=== PATIENT | female | born 1970 | race Caucasian/White ===

== ENCOUNTER 2016-09-21 11:07 | Emergency (ER) | payer BC ==
--- NOTE | ~2016-09-21 | CT4 ---
[facility] A Service of [facility] RADIOLOGY TEXT RESULTS PATIENT: MIKE PATTERSON LOCATION: [facility] : 66 UNIT #: [id number] AGE: [address]: Porfirio Yadav MD SEX: F ORDER DR: [id number] [facility] [address] [place], [place] [address] [id number] MR#: [id number] #: [id number] NAME: MIKE PATTERSON. : 1970 SEX: F STUDY DATE/TIME: 09/21/2016 12:44 UNIT: [facility] ROOM: STUDY DESCRIPTION: CT Abd and Pelv Wo Cont Attending Physician: Porfirio Yadav M.D. Ordering Physician: Porfirio Yadav M.D. Primary Care Physician: Primary Care Physician No MEDICAL IMAGING REPORT This report is preliminary unless electronic signature is present EXAM CT abdomen and pelvis, 09/21/2016 HISTORY Abdomen pain, blood in stool. Generalized weakness for 5 days. History of irritable bowel syndrome. History of right breast cancer. Prior hysterectomy and cholecystectomy. TECHNIQUE This CT exam was performed with one or more of the following radiation dose reduction techniques: automatic exposure control, adjustment of mA and/or kV according to patient size, and iterative reconstruction. FINDINGS CT abdomen and pelvis performed without oral or intravascular contrast. Study limited in the absence of both oral and intravascular contrast. Comparison 04/28/2016. Prior bilateral breast reconstruction/augmentation. The lung bases are clear. Inferior heart and pericardium remarkable. The liver is normal in appearance. No intrahepatic biliary ductal dilatation. There is stable extrahepatic ductal prominence measuring approximately 11.0 mm in diameter with no obstructing process seen and likely physiologic in nature. No pancreatic ductal dilatation. The pancreas is unremarkable. There are calcified splenic granulomata. The adrenal glands are unremarkable. The kidneys show no acute left renal abnormality. No left hydronephrosis or hydroureter. Calcifications in the left pelvis felt to be outside the course of the left ureter. There are tiny right renal calculi, the largest in the mid-right kidney measuring on the order of 2.0-3.0 mm in diameter. No hydronephrosis or hydroureter. No secondary signs of recent stone passage. No bladder calculi. Urinary bladder unremarkable. No perinephric inflammatory change. No indication of cystic or solid mass lesion on noncontrast-enhanced study. The urinary bladder is unremarkable. [facility]. [facility] A Service of [facility] RADIOLOGY TEXT RESULTS PATIENT: MIKE PATTERSON [id number] 66 UNIT #: [id number] AGE: [address]: Porfirio Yadav MD SEX: F ORDER DR: CT PELVIS: No inguinal adenopathy. Status post hysterectomy. No suspicious adnexal structures. No pelvic or retroperitoneal adenopathy. Distal esophagus, stomach, small bowel within normal limits. Air and fluid seen throughout small bowel. Mild air and fluid distension of proximal small bowel with no wall or fold thickening. No pathologic dilatation and no adjacent inflammatory change. Appearance favored to be physiologic in nature. The appendix is not clearly identified but no pericecal or right lower quadrant inflammatory change is seen. The colon shows no acute-appearing abnormality. Cause for the patient's reported blood in stool unclear on basis of this examination. No colonic inflammatory change or focal mass lesion suggested. Unopacified vascular structures show scattered atherosclerotic arterial calcifications. Bony structures show no acute abnormality. IMPRESSION 1. Study somewhat limited in the absence of both oral and intravascular contrast. No clearly acute abnormality seen in the abdomen or pelvis. 2. Status post cholecystectomy and hysterectomy. 3. Stable mild distension extrahepatic common bile duct. No change from March 2016 and favored to be physiologic in nature and related to prior cholecystectomy. 4. Tiny nonobstructing right renal calculi largest measuring 2.0-3.0 mm. No secondary signs of recent stone passage. Kidneys, ureters, urinary bladder otherwise unremarkable. 5. Cause for reported blood in stool unclear. No acute appearing colonic abnormality. No inflammatory change or suggestion of mass lesion. 6. Appendix not clearly identified but no pericecal or lower pelvic inflammatory change is seen. 7. Stable appearance of prior bilateral mammoplasty. 8. See remainder of incidental findings in body of report above. Dictated by... Arpan Mendenhall M.D. THIS IS AN ELECTRONICALLY VERIFIED REPORT Arpan Mendenhall M.D. at 09/22/2016 7:16 PM LENNY/carlos manuel TD: 09/21/2016 14:35 JOB #: [id number] MEDICAL IMAGING REPORT Page 1 of 1 COPY
[~2016-09-21 11:07] MED LIST: ADVIL200 M2 PO; BENTYL10 M1 PO; CIPRO PO; CLIMARA1 PATCH.WK; FLAGYL PO; LOMOTIL TABLET1 TAB PO; LOMOTIL WHITE2.5 M1 PO; LORTAB 7.5-3251 EACH PO; MULTI VITAMIN1 EACH PO; OXYTROL1 PATCH.BW; PHENERGAN PO; PHENERGAN PR; TYLOX 5/500 CAP1 CAP PO; ZELNORM
[2016-09-21 12:24] LABS: URINE SOURCE CLEAN CATCH
[2016-09-21 12:27] LABS: BASOPHIL% 0.6 % (0-2.5); EOSINOPHIL# 0.4 X10e3 (0-0.7); EOSINOPHIL% 7.2 % (0.0-7.0); HEMATOCRIT 40.5 % (35.0-45.0); HEMOGLOBIN 13.4 gm/dL (12.0-16.0); LYMPHOCYTE# 1.4 X10e3 (1.0-3.5); LYMPHOCYTE% 27.9 % (17.0-45.0); MEAN CELL VOLUME 87.1 FL (83-96); MEAN CORPUSCULAR HEMOGLOBIN 28.8 PG (28-34); MEAN CORPUSCULAR HGB CONC 33.1 g/dL (30-36); MEAN PLATELET VOLUME 7.6 FL (6.5-11.5); MONOCYTE# 0.3 X10e3 (0-1.0); MONOCYTE% 6.5 % (3.0-12.0); NEUTROPHIL% 57.8 % (40-75); PLATELET COUNT 211 X10e3 (140-420); RED BLOOD COUNT 4.65 X10e (3.90-5.30); RED CELL DISTRIBUTION WIDTH 13.4 % (11.0-15.5); WHITE BLOOD COUNT 5.2 X10e3 (4.0-10.5)
[2016-09-21 12:36] LABS: DIFF IND NO
[2016-09-21 12:43] LABS: URINE APPEARANCE CLEAR; URINE BILIRUBIN NEG (NEG); URINE BLOOD NEG (NEG); URINE COLOR YELLOW; URINE GLUCOSE NEG (NEG); URINE KETONE NEG (NEG); URINE LEUKOCYTE ESTERASE 1+ (NEG); URINE NITRATE NEG (NEG); URINE PROTEIN NEG (NEG); URINE SPECIFIC GRAVITY 1.022 (1.003-1.035); URINE UROBILINOGEN 0.2 MG/DL (NEG)
[2016-09-21 12:45] LABS: U HYALINE CASTS AUWI 0-2 /[LPF]; URBCS1 AUWI 0-2 /[HPF] (0-2); URINE BACTERIA AUWI NEG (NEGATIVE); URINE SQUAMOUS EPITHELIAL CELL OCC /[HPF]; UWBCS1 AUWI 0-2 (0-5)
[2016-09-21 12:53] LABS: ALBUMIN SERUM 3.9 g/dL (3.5-5.0); ALKALINE PHOSPHATASE 71 U/L (32-92); ALT (SGPT) 17 U/L (10-40); AST (SGOT) 20 U/L (10-42); BILIRUBIN,TOTAL 0.4 mg/dL (0.2-2.0); BLOOD UREA NITROGEN 14 mg/dL (9-23); BUN/CREATININE RATIO 15.55; CARBON DIOXIDE 24 mmol/L (22-31); CHLORIDE 107 mmol/L (100-111); CREATININE SERUM 0.9 mg/dL (0.6-1.4); GLOM FILT RATE Estimated 75.7 mL/min (>60); GLUCOSE FASTING 89 mg/dL (70-110); LIPASE 21 U/L (22-51); POTASSIUM 3.9 mmol/L (3.5-5.1); PROTEIN TOTAL SERUM 7.6 g/dL (6.0-8.3); SODIUM 138 mmol/L (135-145)
[2016-09-21 12:55] LABS: CULTURE INDICATED? NO
[2016-09-21 12:59] LABS: BILIRUBIN, DIRECT <0.1 mg/dL (0.0-0.2); BILIRUBIN,INDIRECT 0.3 mg/dL (0.0-0.9)
== END 2016-09-21 13:44 | disposition home or self-care (01) ==
LOC: CED 11:07
DX: R10.84 Generalized abdominal pain (principal); R19.7 Diarrhea, unspecified; Z88.5 Allergy status to narcotic agent
CPT/HCPCS: 36415; 74176; 80048; 80076; 81003; 83690; 85025; 87045; 87177; 87209; 87427; 87493; 87899; 96360; 99284